=== PATIENT | male | born 1990 | race Two or more races ===

== ENCOUNTER → 2024-02-29 | Outpatient (CLI) | payer BC ==
[2024-02-29 10:05] LABS: Basophils # (auto) 0.1 10 ^3/uL (0-0.2); Basophils % (auto) 0.6 % (0.0-2.0); Eosinophils # (auto) 0.1 10 ^3/uL (0-0.8); Eosinophils % (auto) 0.8 % (0.0-7.0); Hematocrit 45.8 % (41.0-53.0); Hemoglobin 15.6 g/dL (13.5-17.5); Lymphocytes # (auto) 3.2 10 ^3/uL (0.4-5.4); Lymphocytes % (auto) 37.4 % (10.0-50.0); Mean Corpuscular Volume 85.4 fL (80.0-100.0); Monocytes # (auto) 0.5 10 ^3/uL (0-1.3); Monocytes % (auto) 6.3 % (0.0-12.0); Neutrophils # (auto) 4.7 10 ^3/uL (1.6-8.6); Neutrophils % (auto) 54.9 % (37.0-80.0); Nucleated Red Blood Cells % 0.1 %; Red Blood Cells 5.36 10^6/uL (4.5-5.90); White Blood Cell 8.5 10^3/uL (4.4-10.8)
[2024-02-29 10:55] LABS: Alanine Aminotransferase 54 U/L (7-40); Albumin 4.7 g/dL (3.2-4.8); Alkaline Phosphatase 66 U/L (46-116); Anion Gap 6 (5-15); Aspartate Aminotransferase 27 U/L (13-40); BUN/Creatinine Ratio 14.8 (10.0-20.0); Bilirubin, Total 0.7 mg/dL (0.2-1.0); Blood Urea Nitrogen 12 mg/dL (9-23); Calcium 9.8 mg/dL (8.5-10.1); Carbon Dioxide 27 mmol/L (20-30); Chloride 104 mmol/L (98-107); Cholesterol 162 mg/dL (< 200); Glucose 99 mg/dL (74-106); HDL Cholesterol 39 mg/dL (40-59); LDL Cholesterol 112 mg/dL (< 100); Sodium 137 mmol/L (136-145); Triglycerides 115 mg/dL (< 150)
[2024-02-29 10:56] LABS: Total Protein 7.3 g/dL (5.7-8.2)
== END | disposition home or self-care (01) ==
LOC: LAB 09:46
PROVIDERS: ATTEND Nurse Practitioner Family
DX: I10 Essential (primary) hypertension (principal); E66.9 Obesity, unspecified
CPT/HCPCS: 36415; 80053; 80061; 82306; 82962; 84443; 85025

== ENCOUNTER → 2024-10-11 | Day surgery (SDC) | payer MEDICAID ==
[2024-10-09 09:04] LABS: Basophils # (auto) 0.1 10 ^3/uL (0-0.2); Basophils % (auto) 0.6 % (0.0-2.0); Eosinophils # (auto) 0.1 10 ^3/uL (0-0.8); Hematocrit 45.6 % (41.0-53.0); Hemoglobin 15.5 g/dL (13.5-17.5); Lymphocytes # (auto) 4.4 10 ^3/uL (0.4-5.4); Lymphocytes % (auto) 42.7 % (10.0-50.0); Mean Corpuscular Hemoglobin 28.8 pg (28.0-32.0); Mean Corpuscular Hgb Conc. 34.1 g/dL (32.0-36.0); Mean Corpuscular Volume 84.5 fL (80.0-100.0); Monocytes # (auto) 0.7 10 ^3/uL (0-1.3); Monocytes % (auto) 7.1 % (0.0-12.0); Neutrophils % (auto) 48.6 % (37.0-80.0); Nucleated Red Blood Cells % 0.1 %; Platelet Count (auto) 369 10^3/uL (140-450); Red Cell Distribution Width 13.3 % (11.8-14.3); Urine Bacteria None Seen /hpf (None Seen); White Blood Cell 10.3 10^3/uL (4.4-10.8)
[2024-10-09 09:20] LABS: INR 0.98 (0.9-1.15); Partial Thromboplastin Time 28.8 SEC (24.5-34.5); Prothrombin Time 10.4 sec (9.3-11.8)
[2024-10-09 09:56] LABS: Urine Blood Negative /uL (Negative); Urine Clarity Clear (Clear); Urine Color Yellow (Yellow); Urine Mucus FEW (None Seen); Urine Protein, UAD TRACE (Negative); Urine Squamous Epithelial Cell None Seen /hpf (<5); Urine Urobilinogen Normal (Negative); Urine WBC 1 /HPF (0-3); Urine pH 5.5 (5.0-9.0)
[2024-10-09 12:40] LABS: Alkaline Phosphatase 64 U/L (46-116); Anion Gap 12 (5-15); BUN/Creatinine Ratio 17.2 (10.0-20.0); Blood Urea Nitrogen 15 mg/dL (9-23); Calcium 10.4 mg/dL (8.7-10.4); Carbon Dioxide 22 mmol/L (20-31); Chloride 104 mmol/L (98-107); Sodium 138 mmol/L (136-145)
[2024-10-09 12:42] LABS: Aspartate Aminotransferase 27 U/L (13-40); Bilirubin, Total 0.6 mg/dL (0.2-1.0); Total Protein 7.6 g/dL (5.7-8.2)
[2024-10-09 12:51] LABS: Alanine Aminotransferase 42 U/L (7-40); Albumin 4.9 g/dL (3.2-4.8); Glucose 109 mg/dL (74-106)
[~2024-10-11] VITALS: Ht 188 cm; Wt 190.5 kg
[~2024-10-11] MED LIST: AMLO1TAB23 PO; BUPIVACAINE 0.5% MPF INJ 30ML SDV IJ ONE; GLYCOPYRROLATE 0.2 MG/ML 1ML VIAL ONE; HYDR25TA4 PO; HYDROmorphone HCL 2 MG/ML VL/or syr IV PRN; KETAMINE 50mg/ML 1ml syringe ONE; KETOROLAC TROMETH 30 MG/ML 1ML VIAL ONE; LIDOCAINE W/ EPINEPHRINE 1% 20ML VIAL ONE; LIDOCAINE W/ EPINEPHRINE 2% INJ 20ML VIAL ONE; LOSA-535 PO; Lidocaine/Epinephrine 1%-1:100,000 30ML VL ONE; MIDAZOLAM HCL 2MG/2ML 2ml VIAL (1mg/ml) ONE; ONDANSETRON HCL 4 MG/2 ML VIAL ONE; PROPOFOL 10 MG/ML 20 ML IV ONE; SEMA0.25 SC; ceFAZolin 2 GM/D5W100ml 100 ML IV ONE; fentaNYL CITRATE 100 MCG/2 ML VL ONE
[2024-10-11 09:28] VITALS: PULSE 112; RESP 19; TEMP 97.6; O2SAT 100
--- NOTE | 2024-10-11 09:30 | DVHOP2 ---
Operative Report - 2 Report Details Date: 10/11/24 Preop Diagnosis: 1. Right peroneal tendon brevis tear 2. Right plantar fasciitis 3. Right foot pain Postop Diagnosis: Right peroneal tendinitis Surgeon: Dayanna Marlow MD Anesthesiologist: See anesthesia Anesthesia: Mac Implant: Ethibond 3-0 Consent: The patient was informed of the risks and benefits of the procedure. These include but are not limited to complications of anesthesia, postoperative infection, incomplete relief of symptoms, recurrence of symptoms, damage to blood vessels, nerves and tendons, deep venous thrombosis, pulmonary embolism and possible need for repeat surgery in the future. Complications: None Estimated Blood Loss: 15 mL Fluids: See anesthesia Findings: Consistent with diagnosis Indications for Surgery: Worsening right foot pain Name of Procedure Performed 1. Right peroneal tendon repair (45530) 2. Right peroneal tendon synovectomy (92936) 2. Right plantar fasciotomy (47762) Procedure Details Procedure Details: PRE-PROCEDURE INFORMATION: In the pre-op holding area, the extremity to be operated on was clearly marked and the patient verified correct laterality of the marking. The patient was transferred to the OR table and placed in a supine position. A timeout was performed in which identification of the correct patient, procedure, location, and materials was done. The right foot and leg were prepped and draped in normal sterile fashion. The foot and leg were exsanguinated and the ankle Esmarch was applied. DESCRIPTION OF PROCEDURE: Attention was directed to the right lateral ankle where a curvilinear incision was made to gain access to the peroneal tendons. This incision was deepened through blunt and sharp dissection until the peroneal tendons were visualized. Care was taken throughout dissection to avoid damage to neurovascular and tendinous structures. The peroneus brevis and peroneus longus were both inspected from the posterior fibula down to the level of the insertion of the peroneus brevis on the fifth metatarsal styloid process. The peroneus brevis was noted to have a longitudinal tear in the tendon. Utilizing a 3-0 Ethibond suture, these tears were repaired and the tendons were retubularized utilizing a buried-knot baseball-type stitch. The tendon sheath was then closed to avoid future possible subluxation of the peroneal tendons. Attention was directed to the right medial heel where a small stab incision was made. The incision was deepened through blunt and sharp dissection to the level of the plantar fascia. Care was taken throughout dissection to avoid damage to neurovascular and tendinous structure. Using a 15 blade, the medial band of the plantar fascia was then cut. The incision was closed with 4-0 nylon. All surgical wounds were irrigated copiously with saline and closed in layers with the aforementioned suture material. A dry sterile dressing was placed on the surgical extremity. The patient was placed in a cam boot POSTOPERATIVE INFORMATION: The patient tolerated the above noted procedure and anesthesia well and was transferred to the PACU with vital signs stable, and vascular status intact with capillary refill intact to all digits. Postoperative instructions reviewed in detail with the patient with written instructions provided. Patient will return to clinic in approximately 10-14 days for first postoperative visit. Patient has the number of the clinic and was instructed to call prior to that time should any problems, questions, or concerns arise. Condition Good Disposition Home DAYANNA MARLOW DPM Oct 11, 2024 09:30
[2024-10-11 10:13] VITALS: BP 120/63; PULSE 95; RESP 19; O2SAT 95
--- NOTE | 2024-10-16 16:52 | DVHHP2 ---
History Allergies: Coded Allergies: NO KNOWN ALLERGIES (Unverified , 09/19/24) Chief Complaint: Right foot pain Present Illness(Onset/Duration Patient is a 33-year-old male who presents to clinic for a 2-week follow-up of plantar fasciitis of right foot. He states he is wearing the boot as instructed all the time. He continues to experience pain at the end of the day despite wearing the boot. He states he also experiences pain with driving. He also states that his pain gets worse after walking. Patient's family member reports he is having hip pain when he tries to pivot. He states he has been taking tramadol or Tylenol and ibuprofen for pain relief. He expressed the desire to have surgery for definitive treatment as his symptoms have been bothering him for very long time. Patient denies any trauma to the area. Patient denies any recent nausea, vomiting, fevers, or chills. The patient denies any other pedal complaints at this time. Physical Exam Extremities DERMATOLOGIC EXAM: - Skin is warm, smooth, and supple bilaterally. - No erythema noted to the foot and ankle bilaterally. - No hyperkeratotic lesions noted bilaterally. - No other discolorations, lesions, or open wounds noted bilaterally. MUSCULOSKELETAL EXAM: - Tenderness to palpation of medial calcaneal tubercle, right foot. - Muscle strength is 5/5 and active motion is pain-free and symmetrical bilaterally with plantarflexion, dorsiflexion, abduction, adduction, inversion, and eversion against resistance. - No pain or crepitation with passive range of motion bilaterally to all major pedal joints - No tenderness with [id number] compression of the calcaneus. - No tenderness with palpation to the posterior aspect of the calcaneus or Achilles tendon. - Ankle joint dorsiflexion measures 0 degrees of dorsiflexion with the knee extended. With the knee flexed the ankle joint dorsiflexion measures 10 degrees of dorsiflexion. VASCULAR EXAM: - DP and PT pulses are palpable bilaterally. - AURICULAR DETOXIFICATION SPECIALIST is brisk to all digits. - No edema noted to the leg, foot, and ankle bilaterally. NEUROLOGIC EXAM: - Normal light touch sensation to the superficial peroneal, deep peroneal, greyson l, saphenous, and tibial nerve branches. - Protective sensation is intact as tested with a 5.07 10g [place] Monofilament bilaterally. - Negative Tinel sign, bilaterally Plan Patient Plan ASSESSMENT: Patient is a 33-year-old male who was seen in clinic for a follow-up of right plantar fasciitis. MRI of the right foot which shows right foot plantar fascial tear and right foot peroneal tendon tear. PLAN: - The patient's chart was reviewed, clinical findings were discussed with the patient, the etiologies of the conditions were discussed in detail, and a treatment plan was agreed to at this time, with both oral and written instructions provided. - Discussed and reviewed the MRI of the right foot which shows right foot plantar fascial tear and right foot peroneal tendon tear. - Discussed with patient the etiology of plantar fasciitis and the importance stretching to prevent reoccurrence. - Discussed conservative treatment with physiotherapy to strengthen the right foot plantar fasciotomy with peroneal tendon. - Discussed with patient the option to continue in the boot for 2 more weeks, but patient wishes to have surgical repair as he had failed conservative treatment, so will plan to perform plantar fasciotomy with peroneal tendon repair. - FOLLOW-UP: Patient will follow up with me in 2 weeks after the surgery. PREOP PLAN: The patient is scheduled for right foot plantar fasciotomy with peroneal tendon repair, TBD. We reviewed the surgical procedure, the expected recovery and the patient's needs post-operatively. The patient was also given written and verbal pre-operative and post-operative instructions. The benefits of surgery were reviewed which include reduction in pain and increased function. The risks of surgery were reviewed with the patient and include but are not limited to infection, pain, bleeding, numbness, scarring, delayed wound healing, loss of soft tissue or bone, non-union, malunion or delayed-union of bone, joint stiffness, painful hardware, failure of hardware, and potential need for additional surgery. Loss of limb or life. Risks associated with anesthesia. All of the patient's questions were answered to their satisfaction. Informed consent was obtained, signed, and is in the patient's chart. No guarantees were given or implied. I anticipate maintaining the patient non-weight bearing in a fracture boot post-operatively. A prescription for post-operative pain medication will be dispensed for Oxycodone 5mg and Zofran 4mg. Please note that the database on DOPL was accessed and the patient was assessed for prior prescriptions. In prescribing opioid therapy for the management of pain, I have reviewed with the patient: 1) the reasons why this medication is necessary, as well as realistic goals for pain and function; 2) alternative treatment options available, including; 3) the risks of addiction and overdose associated with opioid medications; 4) the dangers of taking opioids with alcohol, benzodiazepines, and other SUPERVISOR PIPELINES depressants; and 5) other risks associated with the use of this medication. I discussed the procedure today with the patient and answered their questions to their satisfaction. We discussed the post op period as well as the time of non- weight bearing anticipated. We talked about the risks, benefits and alternatives. I discussed the risks of the procedure which include but is not limited to infection, damage to neurovascular structures, complex regional pain syndrome, DVT, pulmonary embolism as well as anesthesia related risks. Despite these the patient would like to proceed. Informed consent was obtained and we offered a copy to the patient. Absolutely no guarantees were given or implied. I explained that I cannot guarantee this will alleviate all pain and symptoms and their expectations appear realistic. I assessed their DVT risk and I will go ahead and prophylaxis with 81mg Aspirin twice per day. I will see the patient 14 days post op. INDICATIONS FOR PROCEDURE: The patient with diagnosis as outlined above. The patient has attempted and failed conservative treatment as outlined in preoperative clinic notes. Possible postoperative complications were reviewed with the patient in the pre-op holding area. The patient desires to proceed with surgery and signed the consent form. No guarantees were given or implied, but it is expected that the patient will have a favorable outcome. It is with this understanding that we proceed. DAYANNA MARLOW DPM Oct 16, 2024 16:52
== END | disposition home or self-care (01) ==
LOC: SUR 08:06
PROVIDERS: ATTEND Podiatrist
DX: S86.311A Strain of muscle(s) and tendon(s) of peroneal muscle group at lower leg level, right leg, initial encounter (principal); X58.XXXA Exposure to other specified factors, initial encounter; Y93.89 Activity, other specified; Y92.89 Other specified places as the place of occurrence of the external cause; Y99.8 Other external cause status; M72.2 Plantar fascial fibromatosis; M76.71 Peroneal tendinitis, right leg; M62.171 Other rupture of muscle (nontraumatic), right ankle and foot; Z79.899 Other long term (current) drug therapy; Z83.3 Family history of diabetes mellitus; Z82.49 Family history of ischemic heart disease and other diseases of the circulatory system
CPT/HCPCS: 28008; 28200; 36415; 80053; 81001; 85025; 85610; 85730; J1885; J2250; J2405; J2704; J3010; J3490